=== PATIENT | female | born 1965 | race African-American/Black ===

== ENCOUNTER 2022-07-02 12:27 | Emergency (ER) | payer MEDICAID ==
[~2022-07-02] VITALS: Ht 167.6 cm; Wt 67.1 kg
[2022-07-02] MEDS ORDERED: METH20CP PO (12:54)
--- NOTE | 2022-07-02 12:55 | NUR ---
facial swelling noted 2 days ago.
--- NOTE | 2022-07-02 13:00 | NUR ---
DR MOREL AT THE BEDSIDE
[2022-07-02] MEDS ORDERED: FAMOTIDINE (20 MG) 20 MG TABLET ONE (13:06)
[2022-07-02] MEDS ORDERED: DIPH50CA4 PO (13:10)
[2022-07-02] MEDS ORDERED: FAMO-131 PO (13:10)
[2022-07-02] MEDS: FAMOTIDINE (20 MG) 20 MG TABLET PO ONE (13:11)
--- NOTE | 2022-07-02 13:12 | NUR ---
Patient discharged to home in stable condition. Written and verbal after care instructions given. Patient verbalizes understanding of instruction. Presciption for Pepcid given to pt. Pt educated prior to d/c.
[2022-07-02 13:13] VITALS: BP 118/69
--- NOTE | 2022-07-02 13:30 | NUR ---
Patient discharged to home in stable condition. Written and verbal after care instructions given. Patient verbalizes understanding of instruction.
== END 2022-07-02 13:30 | disposition home or self-care (01) ==
LOC: ER 12:30
DX: T78.40XA Allergy, unspecified, initial encounter (principal); R22.0 Localized swelling, mass and lump, head; F32.A Depression, unspecified; Z88.8 Allergy status to other drugs, medicaments and biological substances; Z79.899 Other long term (current) drug therapy; X58.XXXA Exposure to other specified factors, initial encounter

== ENCOUNTER 2024-04-06 18:49 | Emergency (ER) | payer MEDICAID ==
[~2024-04-06] VITALS: Ht 167.6 cm; Wt 68.0 kg
[~2024-04-06 18:49] MED LIST: DIPH50CA4 PO; FAMO-131 PO; METH20CP PO
[2024-04-06] MEDS ORDERED: KETOROLAC TROMETHAMINE INJ 30 MG/ML VIAL ONE (19:32)
[2024-04-06] MEDS: KETOROLAC TROMETHAMINE INJ 30 MG/ML VIAL IM ONE (19:35)
[2024-04-06] MEDS ORDERED: NAPR-1192 PO (20:04)
[2024-04-06 20:21] VITALS: BP 112/70; TEMP 98.2; O2SAT 99
== END 2024-04-06 20:21 | disposition home or self-care (01) ==
LOC: ER 19:08
DX: M79.662 Pain in left lower leg (principal); C50.919 Malignant neoplasm of unspecified site of unspecified female breast; Z88.0 Allergy status to penicillin
CPT/HCPCS: 99285; 93971; 96372; J1885